=== PATIENT | male | born 1940 | race African-American/Black ===

== ENCOUNTER 2019-04-05 19:50 | Emergency (ER) | payer MEDICARE ==
--- NOTE | 2019-04-05 20:30 | ER Document Report ---
ED Medical Screen (RME) - General Chief Complaint: Abdominal Pain Stated Complaint: ABDOMINAL PAIN/CHEST PAIN Time Seen by Provider: 04/05/19 20:23 TRAVEL OUTSIDE OF THE [place] IN LAST 30 DAYS: No - HPI Notes: 04/05/19 20:45 78-year-old male to the emergency department with complaints of progressively worsening left sided abdominal pain that has been getting progressively getting worse since Friday night. He states that he notices the pain gets significantly worse after he eats. He denies any nausea, vomiting, diarrhea. He does have a low-grade temperature here in the emergency department. He s tates that he takes Coumadin for "a 50% blockage" that patient is unsure what it is. He is not sure of what his last Coumadin level was. I performed a medical screening exam on the patient. He has tenderness to palpation to his epigastrium left upper quadrant left lower quadrant. He appears to be distended in the left upper quadrant and most tender in the left upper quadrant. I have ordered labs as well as CT scan to evaluate further. I have notified charge nurse of the patient and she will move him as soon as a bed is clean. Further management and evaluation will be provided by me inside physician. Physical Exam - Vital signs Vitals: Temp Pulse Resp BP Pulse Ox 100.4 F 72 18 125/69 97 04/05/19 20:18 04/05/19 20:18 04/05/19 20:18 04/05/19 20:18 04/05/19 20:18 Course - Vital Signs Vital signs: Temp Pulse Resp BP Pulse Ox 100.4 F 72 18 125/69 97 04/05/19 20:18 04/05/19 20:18 04/05/19 20:18 04/05/19 20:18 04/05/19 20:18
[2019-04-05] MEDS ORDERED: NORMAL SALINE 1000 ML 1,000 ML IV ONE (20:41)
[2019-04-05] MEDS ORDERED: ACETAMINOPHEN 325 MG TABLET PO ONE (20:41)
[2019-04-05] MEDS ORDERED: ACETAMINOPHEN 650 MG SUPP.RECT PR ONE (20:45)
--- NOTE | 2019-04-05 22:04 | ER Document Report ---
ED General - General Chief Complaint: Abdominal Pain Stated Complaint: ABDOMINAL PAIN/CHEST PAIN Time Seen by Provider: 04/05/19 20:23 Primary Care Provider: EVELIO ARELLANO MD [Primary Care Provider] - Follow up as needed Notes: Patient is a 78-year-old male that presents to the emergency department for chief complaint of left-sided abdominal pain. Patient states that starting Friday he started having some mild diffuse abdominal pain that seemed to worsen over the past few days, and is been persistent on the left lower aspect of his abdomen. He states his been mildly constipated as well. Denies any na usea, vomiting or diarrhea. Denies any any fevers, chills, night sweats. He currently rates his pain as a 6 out of 10 describes as a constant aching occasionally stabbing sensation, worse with pressing over the area. Denies any dysuria, hematuria, chest pain or shortness of breath. Past Medical History: Diabetes, atrial fibrillation, hypertension, chronic kidney disease Past Surgical History: Pacemaker Social History: Denies tobacco, alcohol or drug use. Primary care physician is Dr. Arellano Family History: Reviewed and noncontributory for presenting illness Allergies: Reviewed, see documented allergy list. REVIEW OF SYSTEMS: Other than noted above, the 12 point review of systems was reviewed with the patient and were negative, all pertinent findings are included in the HPI. PHYSICAL EXAMINATION: Vital signs reviewed, nursing noted reviewed. GENERAL: Well-appearing, well-nourished and in no acute distress. HEAD: Atraumatic, normocephalic. EYES: Eyes appear normal, extraocular movements intact, sclera anicteric, conjunctiva are normal. ENT: nares patent, oropharynx clear without exudates. Moist mucous membranes. NECK: Normal range of motion, supple without lymphadenopathy LUNGS: Breath sounds clear to auscultation bilaterally and equal. No wheezes rales or rhonchi. HEART: Regular rate and rhythm without murmurs ABDOMEN: Soft, left lower quadrant tenderness to palpation, normoactive bowel sounds. No rebound, guarding, or rigidity. No masses appreciated. EXTREMITIES: Nontender, good range of motion, no pitting or edema. NEUROLOGICAL: No focal neurological deficits. Moves all extremities spontaneously Motor and sensory grossly intact on exam. PSYCH: Normal mood, normal affect. SKIN: Warm, Dry, normal turgor, no rashes or lesions noted on exposed skin TRAVEL OUTSIDE OF THE [place] IN LAST 30 DAYS: No - Related Data Allergies/Adverse Reactions: No Known Allergies Allergy (Unverified 04/05/19 23:20) Past Medical History - Social History Smoking Status: Never Smoker Family History: Reviewed & Not Pertinent Patient has suicidal ideation: No Patient has homicidal ideation: No Renal/ Medical History: Denies: Hx Peritoneal Dialysis Physical Exam - Vital signs Vitals: Temp Pulse Resp BP Pulse Ox 100.4 F 72 18 125/69 97 04/05/19 20:18 04/05/19 20:18 04/05/19 20:18 04/05/19 20:18 04/05/19 20:18 Course - Re-evaluation Re-evalutation: Patient seen and examined vital signs reviewed. Laboratory data and/or imaging were ordered as appropriate for the patient's presenting symptoms and complaint, with consideration of any critical or life threatening conditions that may be associated with their obtained history and exam as noted above. Patient was treated with IV fluids, morphine and Zofran Results were reviewed when available and demonstrated no leukocytosis, mild anemia, slightly elevated creatinine, 2.0, patient has chronic kidney disease stage III, likely baseline, urine demonstrated some blood, but no signs of infection, CT imaging of the abdomen and pelvis, was consistent with a 0.4 mm ureteral stone, near the UVJ, he also noted to have a colonic ileus, however patient on reevaluation was not having any significant abdominal pain, mild distention, there is note of a umbilical hernia with partial colonic involvement, I was able to reduce the patient's hernia without any issue or discomfort on exam. The patient was re-evaluated and was stable, not complaining of any pain or nausea. Evaluation was most consistent with left ureteral stone, constipation, advised follow-up with his urologist, taking stool softener if needed with pain medication, and to take his Flomax, daily. Results were discussed with the patient at this point, after careful consideration I feel that that patient can be discharged from the emergency department, the patient was educated treatments and reasons to return to the emergency department based on their presumed diagnosis as noted above, they were advised to followup with a primary care physician in 2-3 days. Patient was agreeable to plan of care. *Note is created using voice recognition software and may contain spelling, syntax or grammatical errors. Laboratory 04/05/19 04/05/19 04/05/19 23:00 23:00 23:00 WBC 8.3 RBC 3.30 L Hgb 10.3 L Hct 30.4 L MCV 92 MCH 31.1 MCHC 33.7 RDW 15.1 H Plt Count 127 L Lymph % (Auto) 10.0 L Person % (Auto) 9.4 Eos % (Auto) 0.1 Baso % (Auto) 0.3 Absolute Neuts (auto) 6.6 Absolute Lymphs (auto) 0.8 Absolute Monos (auto) 0.8 Absolute Eos (auto) 0.0 Absolute Basos (auto) 0.0 Seg Neutrophils % 80.2 H PT INR APTT Sodium 139.9 Potassium 4.2 Chloride 105 Carbon Dioxide 26 Anion Gap 9 BUN 29 H Creatinine 2.00 H Est GFR ( Amer) 39 L Est GFR (MDRD) Non-Af 32 L Glucose 88 Lactic Acid Calcium 9.3 Total Bilirubin 1.0 Direct Bilirubin 0.3 Neonat Total Bilirubin Not Reportable Neonat Direct Bilirubin Not Reportable Neonat Indirect Bili Not Reportable AST 28 ALT 30 Alkaline Phosphatase 66 Troponin I < 0.012 Total Protein 6.5 Albumin 3.8 Lipase 142.6 Urine Color Urine Appearance Urine pH Ur Specific [place] Urine Protein Urine Glucose (UA) Urine Ketones Urine Blood Urine Nitrite Urine Bilirubin Urine Urobilinogen Ur Leukocyte Esterase Urine WBC (Auto) Urine RBC (Auto) Squamous Epi Cells Auto Urine Mucus (Auto) Urine Ascorbic Acid 04/05/19 04/05/19 04/05/19 23:00 23:00 23:55 WBC RBC Hgb Hct MCV MCH MCHC RDW Plt Count Lymph % (Auto) Person % (Auto) Eos % (Auto) Baso % (Auto) Absolute Neuts (auto) Absolute Lymphs (auto) Absolute Monos (auto) Absolute Eos (auto) Absolute Basos (auto) Seg Neutrophils % PT 31.5 H INR 2.97 APTT 56.8 H Sodium Potassium Chloride Carbon Dioxide Anion Gap BUN Creatinine Est GFR ( Amer) Est GFR (MDRD) Non-Af Glucose Lactic Acid 0.6 L Calcium Total Bilirubin Direct Bilirubin Neonat Total Bilirubin Neonat Direct Bilirubin Neonat Indirect Bili AST ALT Alkaline Phosphatase Troponin I Total Protein Albumin Lipase Urine Color YELLOW Urine Appearance CLEAR Urine pH 6.0 Ur Specific [place] 1.017 Urine Protein 30 H Urine Glucose (UA) NEGATIVE Urine Ketones 20 H Urine Blood MODERATE H Urine Nitrite NEGATIVE Urine Bilirubin NEGATIVE Urine Urobilinogen 2.0 H Ur Leukocyte Esterase NEGATIVE Urine WBC (Auto) 3 Urine RBC (Auto) 2 Squamous Epi Cells Auto <1 Urine Mucus (Auto) RARE Urine Ascorbic Acid NEGATIVE - Vital Signs Vital signs: Temp Pulse Resp BP Pulse Ox 99.8 F 70 19 120/68 96 04/06/19 01:01 04/05/19 23:33 04/06/19 01:01 04/06/19 01:01 04/06/19 01:01 - Laboratory Result Diagrams: 04/05/19 23:00 04/05/19 23:00 Laboratory results interpreted by me: 04/05/19 04/05/19 04/05/19 23:00 23:00 23:00 RBC 3.30 L Hgb 10.3 L Hct 30.4 L RDW 15.1 H Plt Count 127 L Lymph % (Auto) 10.0 L Seg Neutrophils % 80.2 H PT APTT BUN 29 H Creatinine 2.00 H Est GFR ( Amer) 39 L Est GFR (MDRD) Non-Af 32 L Lactic Acid 0.6 L Urine Protein Urine Ketones Urine Blood Urine Urobilinogen 04/05/19 04/05/19 23:00 23:55 RBC Hgb Hct RDW Plt Count Lymph % (Auto) Seg Neutrophils % PT 31.5 H APTT 56.8 H BUN Creatinine Est GFR ( Amer) Est GFR (MDRD) Non-Af Lactic Acid Urine Protein 30 H Urine Ketones 20 H Urine Blood MODERATE H Urine Urobilinogen 2.0 H Discharge - Discharge Clinical Impression: Left ureteral stone Umbilical hernia Qualifiers: Obstruction and gangrene presence: without obstruction or gangrene Qualified Code(s): K42.9 - Umbilical hernia without obstruction or gangrene Condition: Stable Disposition: HOME, SELF-CARE Instructions: Kidney Stone ([facility]) Additional Instructions: Please follow-up with your urologist, Dr. Barnhart, to address the kidney stone y ou have on the left side, take the nausea medication if needed, you do have some slowing down of the bowel, with signs of gas in your stomach and in your colon, recommend taking a gas reducing medication for this, you have been prescribed a pain medication, but please take this with a stool softener, as it can cause further constipation. Otherwise continue taking Flomax/tamsulosin, once daily and drink plenty of fluids at home. Prescriptions: Tramadol HCl [Ultram] 50 mg PO Q8H PRN #10 tablet PRN Reason: left side pain Ondansetron [Zofran Odt 4 mg Tablet] 1 tab PO Q8H PRN #15 tab.rapdis PRN Reason: For Nausea/Vomiting Referrals: EVELIO ARELLANO MD [Primary Care Provider] - Follow up in 3-5 days SILVIANO BARNHART MD [NO LOCAL MD] - Follow up tomorrow
[2019-04-05] MEDS ORDERED: MORPHINE SULFATE 10 MG/ML INJ IV ONE (22:31)
[2019-04-05] MEDS ORDERED: ONDANSETRON HCL INJ/PF 4 MG/2 ML SDV IV ONE (22:31)
[2019-04-05 23:14] LABS: ABSOLUTE LYMPHOCYTES (AUTO) 0.8 10^3/uL (0.5-4.7); ABSOLUTE MONOCYTES (AUTO) 0.8 10^3/uL (0.1-1.4); ABSOLUTE NEUT (AUTO) 6.6 10^3/uL (1.7-8.2); BASOPHILS % (AUTO) 0.3 % (0-2); EOSINOPHILS % (AUTO) 0.1 % (0-6); HEMATOCRIT 30.4 % (37.9-51.0); HEMOGLOBIN 10.3 g/dL (13.5-17.0); MEAN CORPUSCULAR HEMOGLOBIN 31.1 pg (27.0-33.4); MEAN CORPUSCULAR HGB CONC 33.7 g/dL (32.0-36.0); MEAN CORPUSCULAR VOLUME 92 fl (80-97); MONOCYTES % (AUTO) 9.4 % (3-13); PLATELET COUNT 127 10^3/uL (150-450); RED CELL DISTRIBUTION WIDTH 15.1 % (11.5-14.0); SEGMENTED NEUTROPHILS % (AUTO) 80.2 % (42-78); TOTAL CELLS COUNTED % (AUTO) 100 %; WHITE BLOOD COUNT 8.3 10^3/uL (4.0-10.5)
[2019-04-05 23:17] LABS: INTERNATIONAL RATION (INR) 2.97; PROTHROMBIN TIME 31.5 SEC (11.4-15.4)
[2019-04-05 23:18] LABS: PARTIAL THROMBOPLASTIN TIME 56.8 SEC (23.5-35.8)
[2019-04-05 23:37] LABS: ALBUMIN 3.8 g/dL (3.5-5.0); ALKALINE PHOSPHATASE 66 U/L (38-126); ANION GAP 9 (5-19); ASPARTATE AMINO TRANSFERASE 28 U/L (17-59); BILIRUBIN,DIRECT 0.3 mg/dL (0.0-0.4); BLOOD UREA NITROGEN 29 mg/dL (7-20); CALCIUM 9.3 mg/dL (8.4-10.2); CARBON DIOXIDE 26 mmol/L (22-30); CHLORIDE 105 mmol/L (98-107); GLUCOSE 88 mg/dL (75-110); POTASSIUM 4.2 mmol/L (3.6-5.0); TOTAL PROTEIN 6.5 g/dL (6.3-8.2)
[2019-04-06 00:13] LABS: APPEARANCE,URINE CLEAR; BILIRUBIN,URINE NEGATIVE (NEGATIVE); COLOR,URINE YELLOW; GLUCOSE, URINE NEGATIVE (NEGATIVE); KETONES,URINE 20 mg/dL (NEGATIVE); LEUKOCYTE ESTERASE,URINE NEGATIVE (NEGATIVE); NITRITE,URINE NEGATIVE (NEGATIVE); PROTEIN,URINE 30 mg/dL (NEGATIVE); URINE SPECIFIC GRAVITY 1.017
--- NOTE | 2019-04-06 02:19 | RADIOLOGY REPORT (SQ) ---
EXAM DESCRIPTION: CT ABDOMEN PELVIS WITHOUT IV CONTRAST COMPLETED DATE/TME: 04/06/2019 00:00 CLINICAL HISTORY: 78 years Male, llq abdominal pain Comparison: 04/18/14, report only Technique: No contrast. Coronal and sagittal reformat. This exam was performed according to our departmental dose-optimization program, which includes automated exposure control, adjustment of the mA and/or kV according to patient size and/or use of iterative reconstruction technique.[facility]: Dose Right [facility]: CareDose [facility]: Dose Right [facility]: Teradose 4D [facility]: Company Cubed LIMITATIONS: None Findings: 0.4 cm distal left ureteral stone within 3 cm of the urinary bladder with mild/moderate left hydroureter and mild left hydronephrosis. 1.7 cm umbilical hernia involves partial colonic bowel. Moderate stool, fluid, and air levels of the right colon. Mild dilation of the large bowel excluding the sigmoid. Few loops of small bowel are identified indicating possible prior partial resection. Bilateral perinephric fat stranding, nonspecific. Coronary arterial calcification/stent. Atherosclerotic vascular disease. Cardiac stimulator leads. Moderate L4-L5 and L5-S1 disc bulge with mild/moderate spinal and bilateral foraminal canal stenoses. Atelectasis/scar. No evidence of appendicitis. Appendix not definitively discerned. No evidence of abdominal aortic aneurysm. Unenhanced lower thorax, abdominopelvic structures, and musculoskeleton appear otherwise grossly unremarkable. Impression: 1. A 0.4 cm left distal ureteral stone with low-grade obstruction. 2. Mild large bowel ileus. 1.7 cm umbilical hernia involves partial colonic bowel.
[2019-04-06] MEDS ORDERED: TAMSULOSIN HCL 0.4 MG CAP.SR.24H PO ONE (02:29)
[2019-04-06 03:36] VITALS: BP 121/75
--- NOTE | 2019-04-06 07:12 | EKG REPORT ---
SEVERITY:- ABNORMAL ECG - VENTRICULAR-PACED RHYTHM : Confirmed by: Grant Valenzuela MD 06-Apr-2019 07:11:33
== END 2019-04-06 03:30 | disposition home or self-care (01) ==
LOC: ER 19:50
DX: K42.9 Umbilical hernia without obstruction or gangrene (principal); N20.1 Calculus of ureter; R10.9 Unspecified abdominal pain; R07.9 Chest pain, unspecified; R10.32 Left lower quadrant pain; K59.00 Constipation, unspecified; E11.9 Type 2 diabetes mellitus without complications; I10 Essential (primary) hypertension
CPT/HCPCS: 93005; 36415; 87040; 83690; 85025; 85610; 85730; 80053; 81001; 84484; 83605; 74176; 93010; J2270; A9270; J2405; J7030; 96361; 96374; 96375; 99284

== ENCOUNTER → 2019-04-19 | Outpatient (CLI) | payer MEDICARE ==
[2019-04-19 13:20] LABS: ABSOLUTE BASOPHILS # (AUTO) 0.1 10^3/uL (0.0-0.2); ABSOLUTE EOSINOPHILS # (AUTO) 0.1 10^3/uL (0.0-0.6); ABSOLUTE LYMPHOCYTES (AUTO) 0.9 10^3/uL (0.5-4.7); ABSOLUTE MONOCYTES (AUTO) 0.5 10^3/uL (0.1-1.4); ABSOLUTE NEUT (AUTO) 3.3 10^3/uL (1.7-8.2); BASOPHILS % (AUTO) 1.1 % (0-2); EOSINOPHILS % (AUTO) 1.7 % (0-6); HEMATOCRIT 24.7 % (37.9-51.0); HEMOGLOBIN 8.3 g/dL (13.5-17.0); LYMPHOCYTES % (AUTO) 18.6 % (13-45); MEAN CORPUSCULAR HEMOGLOBIN 30.4 pg (27.0-33.4); MEAN CORPUSCULAR HGB CONC 33.5 g/dL (32.0-36.0); MEAN CORPUSCULAR VOLUME 91 fl (80-97); MONOCYTES % (AUTO) 10.3 % (3-13); PLATELET COUNT 225 10^3/uL (150-450); RED BLOOD COUNT 2.73 10^6/uL (4.35-5.55); RED CELL DISTRIBUTION WIDTH 14.9 % (11.5-14.0); SEGMENTED NEUTROPHILS % (AUTO) 68.3 % (42-78); TOTAL CELLS COUNTED % (AUTO) 100 %; WHITE BLOOD COUNT 4.8 10^3/uL (4.0-10.5)
[2019-04-19 13:27] LABS: INTERNATIONAL RATION (INR) 1.49; PROTHROMBIN TIME 18.1 SEC (11.4-15.4)
[2019-04-19 13:41] LABS: ALBUMIN 3.3 g/dL (3.5-5.0); ALKALINE PHOSPHATASE 61 U/L (38-126); ANION GAP 8 (5-19); ASPARTATE AMINO TRANSFERASE 27 U/L (17-59); BILIRUBIN,DIRECT 0.1 mg/dL (0.0-0.4); BILIRUBIN,TOTAL 0.7 mg/dL (0.2-1.3); BLOOD UREA NITROGEN 12 mg/dL (7-20); CALCIUM 9.4 mg/dL (8.4-10.2); CARBON DIOXIDE 30 mmol/L (22-30); CHLORIDE 103 mmol/L (98-107); GLUCOSE 74 mg/dL (75-110); POTASSIUM 3.5 mmol/L (3.6-5.0); TOTAL PROTEIN 6.1 g/dL (6.3-8.2)
[2019-04-19 13:43] LABS: UR PRO/CREAT RATIO RESULT 0.2 mg/mg (0.0-0.2); URINE CREATININE 66.4 mg/dL (22-328); URINE PROTEIN 14.5 mg/dL (<12)
[2019-04-19 13:58] LABS: FREE T4 (FREE THYROXINE) 1.21 ng/dL (0.78-2.19)
[2019-04-19 14:12] LABS: THYROID STIMULATING HORMONE 2.03 uIU/mL (0.47-4.68)
[2019-04-21 14:37] LABS: CREATININE URINE 61.9 mg/dL (Not Estab.); MICROALBUMIN URINE 12.1 ug/mL (Not Estab.)
== END ==
LOC: OD 12:19
PROVIDERS: ATTEND Internal Medicine
DX: E11.42 Type 2 diabetes mellitus with diabetic polyneuropathy (principal); R80.9 Proteinuria, unspecified; R60.9 Edema, unspecified; Z79.01 Long term (current) use of anticoagulants
CPT/HCPCS: 36415; 80053; 82043; 82570; 83036; 83880; 84156; 84439; 84443; 85025; 85610

== ENCOUNTER → 2019-04-26 | Outpatient (CLI) | payer MEDICARE ==
[2019-04-26 17:45] LABS: APPEARANCE,URINE CLEAR; BILIRUBIN,URINE NEGATIVE (NEGATIVE); COLOR,URINE YELLOW; GLUCOSE, URINE NEGATIVE (NEGATIVE); KETONES,URINE NEGATIVE (NEGATIVE); LEUKOCYTE ESTERASE,URINE NEGATIVE (NEGATIVE); NITRITE,URINE NEGATIVE (NEGATIVE); PROTEIN,URINE NEGATIVE (NEGATIVE); URINE SPECIFIC GRAVITY 1.013; UROBILINOGEN,URINE NEGATIVE mg/dL (<2.0)
[2019-04-26 17:51] LABS: INTERNATIONAL RATION (INR) 2.28; PROTHROMBIN TIME 25.5 SEC (11.4-15.4)
[2019-04-26 17:55] LABS: ABSOLUTE BASOPHILS # (AUTO) 0.1 10^3/uL (0.0-0.2); ABSOLUTE EOSINOPHILS # (AUTO) 0.1 10^3/uL (0.0-0.6); ABSOLUTE LYMPHOCYTES (AUTO) 1.2 10^3/uL (0.5-4.7); ABSOLUTE MONOCYTES (AUTO) 0.4 10^3/uL (0.1-1.4); ABSOLUTE NEUT (AUTO) 2.6 10^3/uL (1.7-8.2); BASOPHILS % (AUTO) 1.3 % (0-2); EOSINOPHILS % (AUTO) 2.8 % (0-6); HEMATOCRIT 28.7 % (37.9-51.0); HEMOGLOBIN 9.4 g/dL (13.5-17.0); LYMPHOCYTES % (AUTO) 26.9 % (13-45); MEAN CORPUSCULAR HEMOGLOBIN 30.2 pg (27.0-33.4); MEAN CORPUSCULAR HGB CONC 32.9 g/dL (32.0-36.0); MEAN CORPUSCULAR VOLUME 92 fl (80-97); MONOCYTES % (AUTO) 9.4 % (3-13); PLATELET COUNT 179 10^3/uL (150-450); RED BLOOD COUNT 3.12 10^6/uL (4.35-5.55); RED CELL DISTRIBUTION WIDTH 14.9 % (11.5-14.0); SEGMENTED NEUTROPHILS % (AUTO) 59.6 % (42-78); TOTAL CELLS COUNTED % (AUTO) 100 %; WHITE BLOOD COUNT 4.4 10^3/uL (4.0-10.5)
[2019-04-26 18:01] LABS: ANION GAP 9 (5-19); BLOOD UREA NITROGEN 28 mg/dL (7-20); CALCIUM 9.5 mg/dL (8.4-10.2); CARBON DIOXIDE 30 mmol/L (22-30); CHLORIDE 102 mmol/L (98-107); GLUCOSE 126 mg/dL (75-110); POTASSIUM 3.8 mmol/L (3.6-5.0)
[2019-04-28 13:37] LABS: CREATININE URINE 98.2 mg/dL (Not Estab.); MICROALBUMIN URINE <3.0 ug/mL (Not Estab.)
== END ==
LOC: OD 16:38
PROVIDERS: ATTEND Internal Medicine Nephrology
DX: E11.22 Type 2 diabetes mellitus with diabetic chronic kidney disease (principal); I12.9 Hypertensive chronic kidney disease with stage 1 through stage 4 chronic kidney disease, or unspecified chronic kidney disease; N18.2 Chronic kidney disease, stage 2 (mild); D64.9 Anemia, unspecified; R79.1 Abnormal coagulation profile
CPT/HCPCS: 36415; 80048; 81001; 82043; 82570; 82728; 83540; 83550; 85025; 85610